=== PATIENT | female | born 1975 | race Caucasian/White ===

== ENCOUNTER 2016-07-21 09:59 | Inpatient (IN) | payer BC ==
[~2016-07-21 09:59] MED LIST: HYDROXYZINE HCL50 M1 PO; JANUVIA100 M1 PO; LAMISIL250 M1 PO; LEVOXYL PO; METFORMIN HCL1000 M2 PO; METRONIDAZOLE500 M3 PO; MULTIVITAMIN1 TAB PO; OMNICEF300 MG; ORAPRED ODT10 MG PO; PREDNISONE20 M1 PO; PRENATAL1 TAB; XYZAL5 M1 PO; ZITHROMAX250 M1
[2016-07-21 10:47] LABS: BASO % 0.3 % (0-2); EOS % 1.7 % (0-7); EOSINOPHIL ABSOLUTE COUNT 0.2 tho/cmm (0.0-0.7); HGB-HEMOGLOBIN 13.1 gm/dl (12.0-15.5); IMMATURE GRANULOCYTES ABSOLUTE 0.07 tho/cmm (0-0.03); IMMATURE GRANULOCYTES PERCENT 0.7 % (0-0.3); LYMPH % 19.3 % (20-45); MCH (MEAN CORPUSCULAR HGB) 28.4 pg (28.0-32.0); MCHC MEAN CORPUSCULAR HGB CONC 33.6 % (32.0-36.0); MCV (MEAN CELL VOLUME) 84.4 fl (82.0-96.0); MEAN PLATELET VOLUME 8.9 cmc (9.4-12.4); MONO % 8.4 % (0-12); MONOCYTE ABSOLUTE COUNT 0.9 tho/cmm (0.0-1.2); NEUTROPHIL ABSOLUTE COUNT 7.1 tho/cmm (1.6-8.0); NEUTROPHIL-AUTOMATED 7.1 tho/cmm (1.6-8.0); NEUTROPHILS % 69.6 % (40-80); PLATELET COUNT 285 tho/cmm (150-450); RED BLOOD COUNT 4.62 mil/cmm (4.00-5.20); RED CELL DISTRIBUTION WIDTH 15.1 % (12.4-16.4); WHITE BLOOD COUNT 10.2 tho/cmm (4.0-10.0)
[2016-07-21] MEDS ORDERED: LABETALOL HCL100 M1 PO (10:55)
[2016-07-21] MEDS ORDERED: METFORMIN HCL1000 M3 (10:56)
[2016-07-21] MEDS ORDERED: HUMULIN N100 UNIT/3 ×2 (11:01→11:02)
[2016-07-21] MEDS ORDERED: HUMALOG KW200 UNIT/1 ×3 (11:03→11:06)
[2016-07-21] MEDS ORDERED: FOLGARD TABLET1 EAC1 (11:05)
[2016-07-21] MEDS ORDERED: PRENATAL TABLE1 EAC3 (11:05)
[2016-07-24] MEDS ORDERED: HUMALOG KW200 UNIT/1 SC ×3 (14:29→14:31)
[2016-07-24] MEDS ORDERED: HUMULIN N100 UNIT/3 SC ×2 (14:33→14:34)
[2016-07-24] MEDS ORDERED: SYNTHROID25 MC1 PO (14:34)
[2016-07-24] MEDS ORDERED: FOLGARD TABLET1 EAC1 PO (14:35)
[2016-07-24] MEDS ORDERED: [UNRECOGNIZED DRUG - OTHER] PO (14:36)
[2016-07-24] MEDS ORDERED: NORCO 5-325 TA1 EACH PO (14:38)
== END 2016-07-24 15:40 | DRG 765 ==
LOC: LDR 09:59 → OBGE 13:04
PROVIDERS: Obstetrics & Gynecology Obstetrics; ADMIT Advanced Practice Midwife
PROC: 10D00Z1 Extraction of Products of Conception, Low, Open Approach (ICD-10-PCS; principal; 2016-07-21)
DX: O34.211 Maternal care for low transverse scar from previous cesarean delivery (principal); O24.12 Pre-existing type 2 diabetes mellitus, in childbirth; O10.02 Pre-existing essential hypertension complicating childbirth; E11.65 Type 2 diabetes mellitus with hyperglycemia; Z3A.37 37 weeks gestation of pregnancy; Z37.0 Single live birth; Z79.4 Long term (current) use of insulin; O99.284 Endocrine, nutritional and metabolic diseases complicating childbirth; E03.9 Hypothyroidism, unspecified; E78.00 Pure hypercholesterolemia, unspecified; E28.2 Polycystic ovarian syndrome; O99.214 Obesity complicating childbirth
CPT/HCPCS: J1580; J1815; J2590